=== PATIENT | male | born 2005 | race Caucasian/White ===

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

== ENCOUNTER 2025-03-13 18:39 | Emergency (ER) | payer MEDICAID, SELFPAY ==
[2025-03-13 18:39] VITALS: BP 135/83; PULSE 79; RESP 16; TEMP 36.6; O2SAT 100; BMI 27.6
--- NOTE | 2025-03-13 19:06 | EX.ED.DYSGE1 ---
HPI History of Present Illness Chief Complaint: Edema Informant: patient Narrative Narrative: 19-year-old male presents emergency room with a bee sting on his right upper lip. Patient states that about an hour ago he went to drink from a can and the bee stung him. Notes swelling of the lip. He denies any difficulty breathing. He denies any hives. No prior significant reactions to hymenoptera. PFSH [facility] Medical History Physical exam, pre-employment Home Medications ?Medication ?Instructions ?Recorded ?Last Taken ?Type NK 11/30/17 Unknown History Allergy/AdvReac Type Severity Reaction Status Date / Time No Known Allergies Allergy Verified 03/13/25 18:39 Social History housing: house Smoking Status: Never smoker ROS ROS ED Constitutional Constitutional ED: Denies chills, fever(s) or weight loss Eyes Eyes: Denies change in vision or diplopia ENT ENT ED: Reports other Details: See history of present illness ; Denies ear pain, rhinorrhea or sore throat Cardiovascular Cardiovascular: Denies chest pain, orthopnea, palpitations or racing heartbeat Respiratory/Chest Respiratory/Chest: Denies cough, dyspnea or orthopnea Gastrointestinal Gastrointestinal: Denies abdominal pain, diarrhea, nausea or vomiting Genitourinary Genitourinary ED: Denies dysuria, hematuria or urinary frequency Musculoskeletal Musculoskeletal: Denies arthralgias or myalgias Integumentary Denies abscess or rash Neurologic Neurologic: Denies headache(s) or weakness Psychiatric Psychiatric: Denies anxiety, depression, suicidal ideation or suicidal thoughts Endocrine Endocrinology: Denies polydipsia, polyphagia or polyuria Allergic/Immunologic Allergic/Immunologic ED: Denies mouth swelling, tongue swelling or urticaria EXAM Physical Exam Const Vital Signs: 03/13/25 18:39 03/13/25 18:46 Temperature 97.8 F Temperature Source Temporal Pulse Rate 79 Respiratory Rate 16 Respiratory Effort Normal Non-Labored Respiratory Pattern Normal Blood Pressure 135/83 H Blood Pressure Mean 100 Pulse Ox 100 Oxygen Delivery Method Room Air Positive well nourished and well developed General Appearance ED: well developed HEENT Reports normocephalic, head/scalp atraumatic and moist mucous membranes HEENT Narrative: There is localized swelling of the left upper lip. There is an obvious envenomation site without retained stinger. No swelling of the tongue. No stridor. Voice is normal. Eyes PERRL and EOMs intact bilaterally Neck no lymphadenopathy, supple and no JVD Resp normal respiratory effort and clear to auscultation bilaterally Cardio regular rate, regular rhythm and no murmurs GI normal to inspection, nondistended, normoactive bowel sounds and non-tender Palpation: soft Back/Spine no CVA tenderness and normal ROM Extremity normal to inspection General Extremety ED: Negative for edema General Extremity: Negative for edema Neuro oriented x3 and CN's II-XII intact bilaterally Sensorium / Orientation: alert Motor Exam: strength 5/5 throughout Psych mental status grossly normal Mood & Affect: Negative for depressed or tearful Skin no rashes or lesions noted and no wounds MDM MDM MDM Narrative Medical decision making narrative: Differential diagnosis includes anaphylaxis localized reaction angioedema bronchospasm airway obstruction Patient was given Benadryl and Pepcid. Ice was applied. Would recommend home treatment of the same. Symptoms should slowly resolve over the next couple days. Return if worsening or concerns History & Record Review Discussion w/independent historian: Patient Discharge Plan Triage Chief Complaint: Edema ED Provider: Duarte Calix Dx/Rx/DC Orders Clinical Impression: Accidental bee sting Instructions: ED Bee Sting Local React Prescriptions: No Action NK Primary Care Provider: Can Wray Referrals: Can Wray MD [Primary Care Provider, Pediatrics] - As Needed Activity Restrictions/Additional Instructions: Benadryl every 6 hours as needed for swelling and itching Pepcid twice daily as needed for same. Ice will help. Print Language: [place]an Disposition Disposition: Home, Self Care
[2025-03-13 19:22] VITALS: BP 127/80; PULSE 70; RESP 16; TEMP 36.6; O2SAT 99
== END 2025-03-13 19:22 | disposition home or self-care (01) ==
LOC: ED 19:19
PROVIDERS: Emergency Provider Emergency Medicine; Visit Provider Emergency Medicine
DX: T63.441A Toxic effect of venom of bees, accidental (unintentional), initial encounter (principal); R22.0 Localized swelling, mass and lump, head
CPT/HCPCS: 99283